=== PATIENT | female | born 1965 | race Caucasian/White ===

== ENCOUNTER 2017-10-31 10:40 | Outpatient (CLI) | payer OTHER ==
[~2017-10-31 10:40] MED LIST: ASPI-612 PO; COU3T PO; ENOX100S3 SQ
[2017-10-31 11:37] LABS: BASOPHILS % (AUTO) 0.5 % (0-1); EOSINOPHILS # (AUTO) 0.5 X10'3 (0-0.9); EOSINOPHILS % (AUTO) 6.4 % (0-6); HEMATOCRIT 39.3 % (35.0-45.0); HEMOGLOBIN 13.5 g/dl (12.0-16.0); LYMPHOCYTES # (AUTO) 1.6 X10'3 (1.1-4.8); LYMPHOCYTES % (AUTO) 22.6 % (21-51); MEAN CORPUSCULAR HGB CONC 34.4 % (33.0-36.5); MEAN CORPUSCULAR VOLUME 93.1 FL (78-98); MEAN PLATELET VOLUME 8.1 FL (7.4-10.4); MONOCYTES # (AUTO) 0.5 X10'3 (0-0.9); MONOCYTES % (AUTO) 6.3 % (2-12); NEUTROPHILS # (AUTO) 4.7 X10'3 (1.8-7.7); NEUTROPHILS % (AUTO) 64.2 % (42-75); PLATELET COUNT 214 X10'3 (140-440); RED BLOOD COUNT 4.22 X10'6 (4.20-5.60); RED CELL DISTRIBUTION WIDTH 11.7 % (11.5-14.5); WHITE BLOOD COUNT 7.3 X10'3 (4.5-11.0)
[2017-10-31 11:42] LABS: CLARITY,URINE SLIGHTLY CLOUDY (Clear); COLOR,URINE STRAW (Yellow); GLUCOSE, URINE NEGATIVE (Neg); KETONES,URINE NEGATIVE (Neg); LEUKOCYTE ESTERASE ,URINE TRACE (Neg); NITRITES, URINE NEGATIVE (Neg); OCCULT BLOOD,URINE NEGATIVE (Neg); PH,URINE 6.5 (4.8-8.0); PROTEIN,URINE NEGATIVE (Neg); UROBILINOGEN,URINE 0.2 E.U/dL (0.2-1.0)
[2017-10-31 11:44] LABS: UA COLLECTION TYPE CLN CATCH MIDSTREAM
[2017-10-31 11:52] LABS: SQUAMOUS EPITHELIAL CELL,UR MANY /LPF (FEW)
[2017-10-31 11:53] LABS: MUCUS STRANDS NONE SEEN /LPF (Neg)
[2017-10-31 11:54] LABS: AMORPHOUS PHOSPHATES 1+; BACTERIA,URINE 3+ /HPF (Neg); RBC,URINE NONE SEEN /HPF (0-2); WBC,URINE 0-4 /HPF (0-4)
[2017-10-31 12:06] LABS: ALBUMIN 3.9 G/DL (3.4-5.0); ANION GAP 8 (8-16); BILIRUBIN,TOTAL 0.5 MG/DL (0.1-1.0); BLOOD UREA NITROGEN 21 MG/DL (7-18); BUN/CREATININE RATIO 23.3 (6.6-38.0); CHLORIDE 106 MMOL/L (99-107); GLUCOSE 93 MG/DL (70-104); POTASSIUM 4.3 MMOL/L (3.5-5.1); SODIUM 142 MMOL/L (135-145); TOTAL CARBON DIOXIDE 27.7 MMOL/L (24-32); TOTAL PROTEIN 7.2 G/DL (6.4-8.2); eGFR 65 ML/MIN
[2017-10-31 12:07] LABS: ALANINE AMINOTRANSFERASE 32 U/L (12-78); ALBUMIN/GLOBULIN RATIO 1.2 (1.1-1.5); ALKALINE PHOSPHATASE 49 IU/L (46-116); ASPARTATE AMINO TRANSFERASE 28 U/L (10-37)
== END 2017-10-31 23:59 | disposition home or self-care (01) ==
LOC: LAB 10:40
PROVIDERS: ATTEND Nurse Practitioner Family
DX: I38 Endocarditis, valve unspecified (principal); Z86.79 Personal history of other diseases of the circulatory system
CPT/HCPCS: 36415; 80053; 81001; 85025

== ENCOUNTER 2017-12-24 11:44 | Outpatient (CLI) | payer OTHER | END 2017-12-24 23:59 | disposition home or self-care (01) | LOC: CARD DIAG 11:44 | PROVIDERS: ATTEND Internal Medicine Cardiovascular Disease | DX: I08.1 Rheumatic disorders of both mitral and tricuspid valves (principal); Z95.2 Presence of prosthetic heart valve | CPT/HCPCS: 93306 ==

== ENCOUNTER 2018-01-14 09:20 | Emergency (ER) | payer OTHER ==
[~2018-01-14] VITALS: Ht 175.3 cm; Wt 81.8 kg
[2018-01-14 09:30] VITALS: BP 110/77
== END 2018-01-14 11:45 | disposition home or self-care (01) ==
LOC: ER 09:20
DX: S93.401A Sprain of unspecified ligament of right ankle, initial encounter (principal); F12.90 Cannabis use, unspecified, uncomplicated; Z88.5 Allergy status to narcotic agent; Z79.82 Long term (current) use of aspirin; Z79.899 Other long term (current) drug therapy; Z79.01 Long term (current) use of anticoagulants; X50.1XXA Overexertion from prolonged static or awkward postures, initial encounter; Y93.89 Activity, other specified; Y92.814 Boat as the place of occurrence of the external cause; Y99.8 Other external cause status
CPT/HCPCS: 29515; 73610; 99284; A6449

== ENCOUNTER 2018-01-16 14:52 | Outpatient (CLI) | payer OTHER ==
[2018-01-16 14:51] VITALS: BP 136/88
== END 2018-01-16 15:35 | disposition home or self-care (01) ==
LOC: ORTHO 14:52
PROVIDERS: ATTEND Nurse Practitioner Family
DX: S93.491A Sprain of other ligament of right ankle, initial encounter (principal); I38 Endocarditis, valve unspecified; Z88.5 Allergy status to narcotic agent; X58.XXXA Exposure to other specified factors, initial encounter; Y93.89 Activity, other specified; Y92.89 Other specified places as the place of occurrence of the external cause; Y99.8 Other external cause status
CPT/HCPCS: 99213; L4360

== ENCOUNTER 2018-01-30 13:16 | Outpatient (CLI) | payer OTHER ==
[2018-01-30 13:11] VITALS: BP 123/86
== END 2018-01-30 14:05 | disposition home or self-care (01) ==
LOC: ORTHO 13:16
PROVIDERS: ATTEND Nurse Practitioner Family
DX: S93.491D Sprain of other ligament of right ankle, subsequent encounter (principal); Z88.8 Allergy status to other drugs, medicaments and biological substances; X58.XXXD Exposure to other specified factors, subsequent encounter
CPT/HCPCS: 73610; 99213

== ENCOUNTER 2018-02-26 10:55 | Outpatient (CLI) | payer OTHER ==
[2018-02-26] VITALS (8 sets, daily range): BP systolic 125–165; BP diastolic 75–93
== END 2018-02-26 23:59 | disposition home or self-care (01) ==
LOC: RAD 10:55
PROVIDERS: ATTEND Internal Medicine Cardiovascular Disease
DX: R07.9 Chest pain, unspecified (principal); R00.2 Palpitations; Z79.82 Long term (current) use of aspirin
CPT/HCPCS: 78452; 93017; A9500

== ENCOUNTER 2018-09-18 09:29 | Outpatient (CLI) | payer OTHER ==
[2018-09-18 10:11] LABS: CLARITY,URINE CLEAR (Clear); COLOR,URINE YELLOW (Yellow); GLUCOSE, URINE NEGATIVE (Neg); KETONES,URINE NEGATIVE (Neg); LEUKOCYTE ESTERASE ,URINE NEGATIVE (Neg); NITRITES, URINE NEGATIVE (Neg); OCCULT BLOOD,URINE NEGATIVE (Neg); PROTEIN,URINE NEGATIVE (Neg); UROBILINOGEN,URINE 0.2 E.U/dL (0.2-1.0)
[2018-09-18 10:18] LABS: UA COLLECTION TYPE CLN CATCH MIDSTREAM
[2018-09-18 10:18] LABS: BASOPHILS % (AUTO) 0.6 % (0-1); EOSINOPHILS # (AUTO) 0.2 X10'3 (0-0.9); EOSINOPHILS % (AUTO) 3.6 % (0-6); HEMATOCRIT 41.3 % (35.0-45.0); LYMPHOCYTES # (AUTO) 1.5 X10'3 (1.1-4.8); LYMPHOCYTES % (AUTO) 25.5 % (21-51); MEAN CORPUSCULAR HEMOGLOBIN 31.2 PG (27.0-31.0); MEAN CORPUSCULAR HGB CONC 33.9 g/dL (33.0-36.5); MEAN CORPUSCULAR VOLUME 91.9 FL (78-98); MEAN PLATELET VOLUME 7.9 FL (7.4-10.4); MONOCYTES # (AUTO) 0.4 X10'3 (0-0.9); MONOCYTES % (AUTO) 7.5 % (2-12); NEUTROPHILS # (AUTO) 3.6 X10'3 (1.8-7.7); NEUTROPHILS % (AUTO) 62.8 % (42-75); PLATELET COUNT 212 X10'3 (140-440); RED CELL DISTRIBUTION WIDTH 12.7 % (11.5-14.5); WHITE BLOOD COUNT 5.7 X10'3 (4.5-11.0)
[2018-09-18 10:31] LABS: ALANINE AMINOTRANSFERASE 20 U/L (12-78); ALBUMIN 3.6 G/DL (3.4-5.0); ALKALINE PHOSPHATASE 65 IU/L (46-116); ANION GAP 6 (8-16); ASPARTATE AMINO TRANSFERASE 17 U/L (10-37); BILIRUBIN,TOTAL 0.4 MG/DL (0.1-1.0); BLOOD UREA NITROGEN 18 MG/DL (7-18); BUN/CREATININE RATIO 22.2 (6.6-38.0); CALCIUM 9.3 MG/DL (8.5-10.1); CHLORIDE 105 MMOL/L (99-107); CHOLESTEROL 216 MG/DL (0-200); CREATININE 0.81 MG/DL (0.40-0.90); GLUCOSE 87 MG/DL (70-104); HDL CHOLESTEROL 73 MG/DL (35-60); LDL CHOLESTEROL 124 MG/DL (50-100); POTASSIUM 4.8 MMOL/L (3.5-5.1); SODIUM 138 MMOL/L (135-145); TOTAL CARBON DIOXIDE 27.5 MMOL/L (24-32); TOTAL PROTEIN 7.1 G/DL (6.4-8.2); TRIGLYCERIDES 91 MG/DL (20-135); eGFR 73 ML/MIN
== END 2018-09-18 23:59 | disposition home or self-care (01) ==
LOC: LAB 09:29
PROVIDERS: ATTEND Family Medicine
DX: Z12.31 Encounter for screening mammogram for malignant neoplasm of breast (principal); Z76.89 Persons encountering health services in other specified circumstances; Z79.82 Long term (current) use of aspirin
CPT/HCPCS: 36415; 80053; 80061; 81003; 84439; 84443; 85025

== ENCOUNTER 2018-10-07 08:43 | Outpatient (CLI) | payer OTHER ==
[2018-10-07] MEDS ORDERED: iohexol 300mg/ml 100ml inj. ONE (09:07)
== END 2018-10-07 23:59 | disposition home or self-care (01) ==
LOC: 64 CT 08:43
PROVIDERS: ATTEND Family Medicine
DX: N83.202 Unspecified ovarian cyst, left side (principal); Z98.890 Other specified postprocedural states; Z88.5 Allergy status to narcotic agent
CPT/HCPCS: 74177; Q9967

== ENCOUNTER 2018-11-19 12:36 | Outpatient (CLI) | payer OTHER | END 2018-11-19 23:59 | disposition home or self-care (01) | LOC: RAD 12:36 | PROVIDERS: ATTEND Orthopaedic Surgery | DX: M17.11 Unilateral primary osteoarthritis, right knee (principal); M22.41 Chondromalacia patellae, right knee; M25.461 Effusion, right knee | CPT/HCPCS: 73721 ==

== ENCOUNTER 2019-03-05 14:34 | Outpatient (CLI) | payer OTHER | END 2019-03-05 23:59 | disposition home or self-care (01) | LOC: CARD DIAG 14:34 | PROVIDERS: ATTEND Internal Medicine Cardiovascular Disease | DX: I08.2 Rheumatic disorders of both aortic and tricuspid valves (principal) | CPT/HCPCS: 93306 ==

== ENCOUNTER 2019-11-12 13:50 | Outpatient (CLI) | payer OTHER ==
[2019-11-12 14:20] LABS: CLARITY,URINE CLEAR (Clear); COLOR,URINE YELLOW (Yellow); GLUCOSE, URINE NEGATIVE (Neg); KETONES,URINE NEGATIVE (Neg); LEUKOCYTE ESTERASE ,URINE NEGATIVE (Neg); NITRITES, URINE NEGATIVE (Neg); OCCULT BLOOD,URINE TRACE-INTACT (Neg); PROTEIN,URINE NEGATIVE (Neg); UROBILINOGEN,URINE 0.2 E.U/dL (0.2-1.0)
[2019-11-12 14:22] LABS: BASOPHILS # (AUTO) 0.1 X10'3 (0-0.2); BASOPHILS % (AUTO) 0.9 % (0-1); EOSINOPHILS # (AUTO) 0.2 X10'3 (0-0.9); EOSINOPHILS % (AUTO) 2.7 % (0-6); HEMATOCRIT 40.7 % (35.0-45.0); HEMOGLOBIN 13.8 g/dl (12.0-16.0); LYMPHOCYTES # (AUTO) 1.7 X10'3 (1.1-4.8); LYMPHOCYTES % (AUTO) 27.7 % (21-51); MEAN CORPUSCULAR HEMOGLOBIN 32.3 PG (27.0-31.0); MEAN PLATELET VOLUME 8.1 FL (7.4-10.4); MONOCYTES # (AUTO) 0.5 X10'3 (0-0.9); NEUTROPHILS # (AUTO) 3.7 X10'3 (1.8-7.7); NEUTROPHILS % (AUTO) 60.7 % (42-75); PLATELET COUNT 215 X10'3 (140-440); RED BLOOD COUNT 4.29 X10'6 (4.20-5.60); RED CELL DISTRIBUTION WIDTH 12.4 % (11.5-14.5); WHITE BLOOD COUNT 6.1 X10'3 (4.5-11.0)
[2019-11-12 14:26] LABS: UA COLLECTION TYPE CLN CATCH MIDSTREAM
[2019-11-12 14:30] LABS: SQUAMOUS EPITHELIAL CELL,UR FEW /LPF (FEW)
[2019-11-12 14:31] LABS: BACTERIA,URINE FEW /HPF (Neg); RBC,URINE 0-2 /HPF (0-2); WBC,URINE 0-4 /HPF (0-4)
[2019-11-12 14:44] LABS: ALANINE AMINOTRANSFERASE 20 U/L (12-78); ALBUMIN 4.1 G/DL (3.4-5.0); ALBUMIN/GLOBULIN RATIO 1.2 (1.1-1.5); ALKALINE PHOSPHATASE 63 IU/L (46-116); ANION GAP 4 (8-16); ASPARTATE AMINO TRANSFERASE 23 U/L (10-37); BILIRUBIN,TOTAL 0.5 MG/DL (0.1-1.0); BLOOD UREA NITROGEN 20 MG/DL (7-18); BUN/CREATININE RATIO 21.7 (6.6-38.0); CALCIUM 9.3 MG/DL (8.5-10.1); CHLORIDE 106 MMOL/L (99-107); CHOL/HDL RATIO 2.6 (0.00-4.99); CHOLESTEROL 242 MG/DL (0-200); CREATININE 0.92 MG/DL (0.40-0.90); GLUCOSE 82 MG/DL (70-104); HDL CHOLESTEROL 92 MG/DL (35-60); LDL CHOLESTEROL 134 MG/DL (50-100); POTASSIUM 3.9 MMOL/L (3.5-5.1); SODIUM 140 MMOL/L (135-145); TOTAL CARBON DIOXIDE 29.8 MMOL/L (24-32); TOTAL PROTEIN 7.5 G/DL (6.4-8.2); TRIGLYCERIDES 55 MG/DL (20-135); eGFR 63 ML/MIN
== END 2019-11-12 23:59 | disposition home or self-care (01) ==
LOC: LAB 13:50
PROVIDERS: ATTEND Family Medicine
DX: Z00.00 Encounter for general adult medical examination without abnormal findings (principal)
CPT/HCPCS: 36415; 80053; 80061; 81001; 84439; 84443; 85025

== ENCOUNTER 2019-12-05 08:15 | Outpatient (CLI) | payer OTHER ==
[2019-12-05 08:54] LABS: HEMOGLOBIN A1C 5.3 % (4.5-6.2)
[2019-12-05 09:03] LABS: HDL CHOLESTEROL 77 MG/DL (35-60); LDL CHOLESTEROL 120 MG/DL (50-100); TRIGLYCERIDES 51 MG/DL (20-135)
[2019-12-05 09:18] LABS: CHOL/HDL RATIO 2.5 (0.00-4.99); CHOLESTEROL 191 MG/DL (0-200)
== END 2019-12-05 23:59 | disposition home or self-care (01) ==
LOC: LAB 08:15
PROVIDERS: ATTEND Family Medicine
DX: E78.00 Pure hypercholesterolemia, unspecified (principal); R73.03 Prediabetes; M10.9 Gout, unspecified
CPT/HCPCS: 36415; 80061; 83036; 84550

== ENCOUNTER 2020-07-01 04:22 | Emergency (ER) | payer BC, OTHER ==
[~2020-07-01] VITALS: Ht 175.3 cm; Wt 81.8 kg
[2020-07-01 04:27] VITALS: BP 142/78
== END 2020-07-01 05:08 | disposition home or self-care (01) ==
LOC: ER 04:22
DX: H11.31 Conjunctival hemorrhage, right eye (principal); R51.9 Headache, unspecified; Z98.890 Other specified postprocedural states; Z72.89 Other problems related to lifestyle; Z88.5 Allergy status to narcotic agent; Z79.82 Long term (current) use of aspirin; Z79.899 Other long term (current) drug therapy
CPT/HCPCS: 36415; 85610; 99283

== ENCOUNTER 2020-11-02 09:04 | Outpatient (CLI) | payer BC ==
[2020-11-02 09:41] LABS: BASOPHILS % (AUTO) 0.6 % (0-1); EOSINOPHILS # (AUTO) 0.3 X10'3 (0-0.9); EOSINOPHILS % (AUTO) 5.4 % (0-6); HEMATOCRIT 41.1 % (35.0-45.0); HEMOGLOBIN 13.9 g/dl (12.0-16.0); LYMPHOCYTES # (AUTO) 1.3 X10'3 (1.1-4.8); LYMPHOCYTES % (AUTO) 21.3 % (21-51); MEAN CORPUSCULAR HEMOGLOBIN 31.4 PG (27.0-31.0); MEAN CORPUSCULAR HGB CONC 33.9 g/dL (33.0-36.5); MEAN CORPUSCULAR VOLUME 92.7 FL (78-98); MONOCYTES # (AUTO) 0.4 X10'3 (0-0.9); MONOCYTES % (AUTO) 6.4 % (2-12); NEUTROPHILS % (AUTO) 66.3 % (42-75); PLATELET COUNT 223 X10'3 (140-440); RED BLOOD COUNT 4.43 X10'6 (4.20-5.60); RED CELL DISTRIBUTION WIDTH 12.1 % (11.5-14.5); WHITE BLOOD COUNT 6.1 X10'3 (4.5-11.0)
[2020-11-02 09:42] LABS: CLARITY,URINE CLEAR (Clear); COLOR,URINE STRAW (Yellow); GLUCOSE, URINE NEGATIVE (Neg); KETONES,URINE NEGATIVE (Neg); LEUKOCYTE ESTERASE ,URINE SMALL (Neg); NITRITES, URINE POSITIVE (Neg); OCCULT BLOOD,URINE NEGATIVE (Neg); PH,URINE 6.5 (4.8-8.0); PROTEIN,URINE NEGATIVE (Neg); UROBILINOGEN,URINE 0.2 E.U/dL (0.2-1.0)
[2020-11-02 09:44] LABS: UA COLLECTION TYPE CLN CATCH MIDSTREAM
[2020-11-02 09:49] LABS: SQUAMOUS EPITHELIAL CELL,UR MODERATE /LPF (FEW)
[2020-11-02 09:50] LABS: BACTERIA,URINE 1+ /HPF (Neg); MUCUS STRANDS FEW /LPF (Neg); RBC,URINE 0-2 /HPF (0-2); TRANSITIONAL EPI CELLS,URINE FEW /HPF; WBC,URINE 0-4 /HPF (0-4)
[2020-11-02 09:58] LABS: ALANINE AMINOTRANSFERASE 28 U/L (12-78); ALBUMIN 3.8 G/DL (3.4-5.0); ALBUMIN/GLOBULIN RATIO 1.1 (1.1-1.5); ALKALINE PHOSPHATASE 78 IU/L (46-116); ANION GAP 6 (8-16); BILIRUBIN,TOTAL 0.5 MG/DL (0.1-1.0); BLOOD UREA NITROGEN 16 MG/DL (7-18); BUN/CREATININE RATIO 17.6 (6.6-38.0); CALCIUM 9.5 MG/DL (8.5-10.1); CHLORIDE 107 MMOL/L (99-107); CREATININE 0.91 MG/DL (0.40-0.90); GLUCOSE 95 MG/DL (70-104); POTASSIUM 4.3 MMOL/L (3.5-5.1); SODIUM 142 MMOL/L (135-145); TOTAL CARBON DIOXIDE 29.4 MMOL/L (24-32); TOTAL PROTEIN 7.2 G/DL (6.4-8.2); eGFR 64 ML/MIN
[2020-11-02 09:59] LABS: ASPARTATE AMINO TRANSFERASE 23 U/L (10-37)
[2020-11-02 10:06] LABS: CHOL/HDL RATIO 2.9 (0.00-4.99); CHOLESTEROL 235 MG/DL (0-200); HDL CHOLESTEROL 81 MG/DL (35-60); LDL CHOLESTEROL 144 MG/DL (50-100); TRIGLYCERIDES 57 MG/DL (20-135)
== END 2020-11-02 23:59 | disposition home or self-care (01) ==
LOC: LAB 09:04
PROVIDERS: ATTEND Family Medicine
DX: R39.9 Unspecified symptoms and signs involving the genitourinary system (principal); R53.83 Other fatigue; E78.00 Pure hypercholesterolemia, unspecified; R73.03 Prediabetes; D64.9 Anemia, unspecified; E07.9 Disorder of thyroid, unspecified
CPT/HCPCS: 36415; 80053; 80061; 81001; 84436; 84443; 85025; 87088

== ENCOUNTER 2020-11-15 08:22 | Outpatient (CLI) | payer BC ==
[2020-11-15] VITALS (8 sets, daily range): BP systolic 122–131; BP diastolic 66–83
[~2020-11-15] VITALS: Ht 175.3 cm; Wt 82.6 kg
[2020-11-15] MEDS ORDERED: regadenoson 0.4mg/5ml syringe IV ONE (09:50)
[2020-11-15] MEDS ORDERED: aminophylline 250mg/10ml inj. IV ONE (09:50)
== END 2020-11-15 23:59 | disposition home or self-care (01) ==
LOC: CARD DIAG 08:22
PROVIDERS: ATTEND Internal Medicine Cardiovascular Disease
DX: I10 Essential (primary) hypertension (principal); Z95.2 Presence of prosthetic heart valve
CPT/HCPCS: 78452; 93017; 93306; A9500

== ENCOUNTER 2021-05-03 08:11 | Emergency (ER) | payer BC ==
[~2021-05-03] VITALS: Ht 175.3 cm; Wt 84.1 kg
[2021-05-03 08:29] VITALS: BP 142/77
[2021-05-03] MEDS ORDERED: HYDR-3965 PO (08:57)
== END 2021-05-03 09:13 | disposition home or self-care (01) ==
LOC: ER 08:12 → EEVIPCON 08:12 → ER 09:13
DX: S82.832A Other fracture of upper and lower end of left fibula, initial encounter for closed fracture (principal); S93.402A Sprain of unspecified ligament of left ankle, initial encounter; Z98.891 History of uterine scar from previous surgery; Z98.890 Other specified postprocedural states; Z72.89 Other problems related to lifestyle; Z88.5 Allergy status to narcotic agent; Z88.8 Allergy status to other drugs, medicaments and biological substances; Z79.82 Long term (current) use of aspirin; Z79.899 Other long term (current) drug therapy; Z95.2 Presence of prosthetic heart valve; Z79.01 Long term (current) use of anticoagulants; X50.1XXA Overexertion from prolonged static or awkward postures, initial encounter; Y93.01 Activity, walking, marching and hiking; Y92.89 Other specified places as the place of occurrence of the external cause; Y99.8 Other external cause status
CPT/HCPCS: 73610; 99283

== ENCOUNTER 2021-06-24 13:25 | Outpatient (CLI) | payer BC | END 2021-06-24 23:59 | disposition home or self-care (01) | LOC: RAD 13:25 | PROVIDERS: ATTEND Orthopaedic Surgery | DX: S82.892A Other fracture of left lower leg, initial encounter for closed fracture (principal); M77.52 Other enthesopathy of left foot and ankle; X58.XXXA Exposure to other specified factors, initial encounter; Y93.89 Activity, other specified; Y92.89 Other specified places as the place of occurrence of the external cause; Y99.8 Other external cause status | CPT/HCPCS: 73610 ==

== ENCOUNTER 2021-08-24 12:47 | Emergency (ER) | payer BC ==
[~2021-08-24] VITALS: Ht 175.3 cm; Wt 89.0 kg
[2021-08-24 13:18] VITALS: BP_SYST 85
[2021-08-24] MEDS ORDERED: cocaine 4% topical solution 4ml bottle MM ONE (13:35)
[2021-08-24] MEDS ORDERED: ondansetron/PF 4mg/2ml inj IV ONE (13:35)
[2021-08-24] MEDS ORDERED: AMOX-580 PO (13:36)
[2021-08-24] MEDS ORDERED: ONDA4TAB12 PO (13:52)
== END 2021-08-24 15:44 | disposition home or self-care (01) ==
LOC: EEVIPCON 12:47 → ER 12:47
DX: R04.0 Epistaxis (principal); Z98.890 Other specified postprocedural states; Z72.89 Other problems related to lifestyle; Z88.5 Allergy status to narcotic agent; Z79.2 Long term (current) use of antibiotics; Z79.82 Long term (current) use of aspirin; Z79.899 Other long term (current) drug therapy
CPT/HCPCS: 30901; 70160; 99284

== ENCOUNTER 2021-09-20 12:33 | Outpatient (CLI) | payer BC ==
[~2021-09-20 12:33] MED LIST changes: +AMOX-580 PO; +ONDA4TAB12 PO
== END 2021-09-20 23:59 | disposition home or self-care (01) ==
LOC: RAD 12:33
PROVIDERS: ATTEND Orthopaedic Surgery
DX: S86.312A Strain of muscle(s) and tendon(s) of peroneal muscle group at lower leg level, left leg, initial encounter (principal); M72.2 Plantar fascial fibromatosis; M65.872 Other synovitis and tenosynovitis, left ankle and foot; M62.562 Muscle wasting and atrophy, not elsewhere classified, left lower leg; M77.52 Other enthesopathy of left foot and ankle; M25.872 Other specified joint disorders, left ankle and foot; M77.32 Calcaneal spur, left foot; X58.XXXA Exposure to other specified factors, initial encounter; Y93.89 Activity, other specified; Y92.89 Other specified places as the place of occurrence of the external cause; Y99.8 Other external cause status
CPT/HCPCS: 73721

== ENCOUNTER 2021-12-12 10:53 | Outpatient (CLI) | payer BC ==
[~2021-12-12 10:53] MED LIST changes: -AMOX-580 PO
== END 2021-12-12 23:59 | disposition home or self-care (01) ==
LOC: RAD 10:53
PROVIDERS: ATTEND Orthopaedic Surgery
DX: S83.231A Complex tear of medial meniscus, current injury, right knee, initial encounter (principal); M17.11 Unilateral primary osteoarthritis, right knee; M25.461 Effusion, right knee; X58.XXXA Exposure to other specified factors, initial encounter; Y93.89 Activity, other specified; Y92.89 Other specified places as the place of occurrence of the external cause; Y99.8 Other external cause status
CPT/HCPCS: 73721

== ENCOUNTER 2021-12-12 11:01 | Outpatient (CLI) | payer BC ==
[2021-12-12 12:24] LABS: BASOPHILS % (AUTO) 0.4 % (0-1); EOSINOPHILS # (AUTO) 0.3 X10'3 (0-0.9); EOSINOPHILS % (AUTO) 5.1 % (0-6); HEMATOCRIT 39.8 % (35.0-45.0); HEMOGLOBIN 13.3 g/dl (12.0-16.0); LYMPHOCYTES # (AUTO) 1.2 X10'3 (1.1-4.8); LYMPHOCYTES % (AUTO) 21.6 % (21-51); MEAN CORPUSCULAR HEMOGLOBIN 30.1 PG (27.0-31.0); MEAN CORPUSCULAR HGB CONC 33.4 g/dL (33.0-36.5); MEAN CORPUSCULAR VOLUME 90.1 FL (78-98); MEAN PLATELET VOLUME 8.2 FL (7.4-10.4); MONOCYTES # (AUTO) 0.4 X10'3 (0-0.9); MONOCYTES % (AUTO) 7.6 % (2-12); NEUTROPHILS # (AUTO) 3.8 X10'3 (1.8-7.7); NEUTROPHILS % (AUTO) 65.3 % (42-75); PLATELET COUNT 216 X10'3 (140-440); RED BLOOD COUNT 4.41 X10'6 (4.20-5.60); RED CELL DISTRIBUTION WIDTH 12.6 % (11.5-14.5); WHITE BLOOD COUNT 5.8 X10'3 (4.5-11.0)
[2021-12-12 12:56] LABS: ALANINE AMINOTRANSFERASE 21 U/L (12-78); ALBUMIN 3.6 G/DL (3.4-5.0); ALBUMIN/GLOBULIN RATIO 1.1 (1.1-1.5); ALKALINE PHOSPHATASE 72 IU/L (46-116); ANION GAP 6 (8-16); ASPARTATE AMINO TRANSFERASE 18 U/L (10-37); BILIRUBIN,TOTAL 0.4 MG/DL (0.1-1.0); BLOOD UREA NITROGEN 20 MG/DL (7-18); BUN/CREATININE RATIO 22.5 (6.6-38.0); C-REACTIVE PROTEIN 0.07 MG/DL (0.0-0.5); CALCIUM 9.1 MG/DL (8.5-10.1); CHLORIDE 108 MMOL/L (99-107); CHOL/HDL RATIO 2.9 (0.00-4.99); CHOLESTEROL 256 MG/DL (0-200); CREATININE 0.89 MG/DL (0.40-0.90); GLUCOSE 79 MG/DL (70-104); HDL CHOLESTEROL 88 MG/DL (35-60); LDL CHOLESTEROL 130 MG/DL (50-100); PHOSPHORUS 3.9 MG/DL (2.3-4.5); POTASSIUM 4.4 MMOL/L (3.5-5.1); SODIUM 142 MMOL/L (135-145); TOTAL CARBON DIOXIDE 27.6 MMOL/L (24-32); TOTAL PROTEIN 6.9 G/DL (6.4-8.2); TRIGLYCERIDES 91 MG/DL (20-135); eGFR 65 ML/MIN
[2021-12-13 12:12] LABS: FSH, SERUM 51.6 mIU/mL (.)
[2021-12-13 18:39] LABS: MICROALB/CRT, RATIO <10 mg/g creat (0-29)
== END 2021-12-12 23:59 | disposition home or self-care (01) ==
LOC: LAB 11:01
PROVIDERS: ATTEND Family Medicine
DX: Z13.21 Encounter for screening for nutritional disorder (principal); Z12.11 Encounter for screening for malignant neoplasm of colon; R07.89 Other chest pain; R53.82 Chronic fatigue, unspecified; E78.2 Mixed hyperlipidemia; G47.30 Sleep apnea, unspecified; Z78.0 Asymptomatic menopausal state; Z95.4 Presence of other heart-valve replacement
CPT/HCPCS: 36415; 80053; 80061; 82043; 82306; 82570; 82607; 82746; 83001; 83735; 84100; 84439; 84443; 85025; 85651; 86140

== ENCOUNTER 2022-08-28 08:45 | Outpatient (CLI) | payer BC ==
[2022-08-28 09:31] LABS: ALANINE AMINOTRANSFERASE 26 U/L (12-78); ALBUMIN 3.8 G/DL (3.4-5.0); ALBUMIN/GLOBULIN RATIO 1.2 (1.1-1.5); ALKALINE PHOSPHATASE 82 IU/L (46-116); ANION GAP 6 (8-16); ASPARTATE AMINO TRANSFERASE 26 U/L (10-37); BILIRUBIN,TOTAL 0.4 MG/DL (0.1-1.0); BLOOD UREA NITROGEN 20 MG/DL (7-18); BUN/CREATININE RATIO 21.7 (6.6-38.0); CALCIUM 9.6 MG/DL (8.5-10.1); CHLORIDE 104 MMOL/L (99-107); CHOL/HDL RATIO 2.4 (0.00-4.99); CHOLESTEROL 243 MG/DL (0-200); CREATININE 0.92 MG/DL (0.40-0.90); GLUCOSE 96 MG/DL (70-104); HDL CHOLESTEROL 101 MG/DL (35-60); LDL CHOLESTEROL 131 MG/DL (50-100); POTASSIUM 4.1 MMOL/L (3.5-5.1); SODIUM 137 MMOL/L (135-145); TOTAL CARBON DIOXIDE 27.4 MMOL/L (24-32); TOTAL PROTEIN 7.1 G/DL (6.4-8.2); TRIGLYCERIDES 43 MG/DL (20-135); eGFR 62 ML/MIN
== END 2022-08-28 23:59 | disposition home or self-care (01) ==
LOC: RAD 08:45
PROVIDERS: ATTEND Internal Medicine Cardiovascular Disease
DX: I08.8 Other rheumatic multiple valve diseases (principal); R06.02 Shortness of breath
CPT/HCPCS: 36415; 80053; 80061; 93306

== ENCOUNTER 2022-11-11 07:31 | Emergency (ER) | payer BC ==
[~2022-11-11] VITALS: Ht 175.3 cm; Wt 85.0 kg
[2022-11-11 07:34] VITALS: BP 127/79
[2022-11-11] MEDS ORDERED: dexamethasone sod phosphate 10mg/ml inj IM STA (07:45)
[2022-11-11] MEDS ORDERED: PRED20TA PO (07:53)
== END 2022-11-11 08:02 | disposition home or self-care (01) ==
LOC: ER 07:32
DX: L23.7 Allergic contact dermatitis due to plants, except food (principal); Z98.890 Other specified postprocedural states; Z72.89 Other problems related to lifestyle; Z79.82 Long term (current) use of aspirin; Z79.899 Other long term (current) drug therapy; Z88.5 Allergy status to narcotic agent
CPT/HCPCS: 96372; 99283; J1100

== ENCOUNTER 2023-02-06 14:47 | Outpatient (CLI) | payer BC | END 2023-02-06 23:59 | disposition home or self-care (01) | LOC: RAD 14:47 | PROVIDERS: ATTEND Nurse Practitioner Family | DX: S83.242A Other tear of medial meniscus, current injury, left knee, initial encounter (principal); M17.12 Unilateral primary osteoarthritis, left knee; M25.562 Pain in left knee; M25.462 Effusion, left knee; M94.8X8 Other specified disorders of cartilage, other site; M25.862 Other specified joint disorders, left knee; X58.XXXA Exposure to other specified factors, initial encounter; Y93.89 Activity, other specified; Y92.89 Other specified places as the place of occurrence of the external cause; Y99.8 Other external cause status | CPT/HCPCS: 73721 ==

== ENCOUNTER → 2023-07-12 | Outpatient (CLI) | payer BC ==
[2023-07-12 15:34] LABS: BILIRUBIN,URINE NEGATIVE (Neg); CLARITY,URINE CLEAR (Clear); COLOR,URINE YELLOW (Yellow); GLUCOSE, URINE NEGATIVE (Neg); KETONES,URINE NEGATIVE (Neg); LEUKOCYTE ESTERASE ,URINE NEGATIVE (Neg); NITRITES, URINE NEGATIVE (Neg); OCCULT BLOOD,URINE NEGATIVE (Neg); PROTEIN,URINE NEGATIVE (Neg); UROBILINOGEN,URINE 0.2 E.U/dL (0.2-1.0)
[2023-07-12 16:00] LABS: UA COLLECTION TYPE NON-SPECIFIED
== END | disposition home or self-care (01) ==
LOC: RAD 14:19
PROVIDERS: ATTEND Family Medicine
DX: R10.9 Unspecified abdominal pain (principal)
CPT/HCPCS: 81003

== ENCOUNTER 2024-01-31 16:11 | Outpatient (CLI) | payer BC ==
[~2024-01-31 16:11] MED LIST changes: +ONDA-243 PO; -ONDA4TAB12 PO
== END 2024-01-31 23:59 | disposition home or self-care (01) ==
LOC: MRI 16:11
PROVIDERS: ATTEND Orthopaedic Surgery
DX: S83.232A Complex tear of medial meniscus, current injury, left knee, initial encounter (principal); S83.241A Other tear of medial meniscus, current injury, right knee, initial encounter; S83.272A Complex tear of lateral meniscus, current injury, left knee, initial encounter; M25.462 Effusion, left knee; M71.22 Synovial cyst of popliteal space [Baker], left knee; M25.562 Pain in left knee; M26.56 Non-working side interference; X58.XXXA Exposure to other specified factors, initial encounter; Y93.89 Activity, other specified; Y92.89 Other specified places as the place of occurrence of the external cause; Y99.8 Other external cause status; M25.461 Effusion, right knee
CPT/HCPCS: 73721

== ENCOUNTER 2024-02-21 13:05 | Emergency (ER) | payer BC ==
[~2024-02-21] VITALS: Ht 175.3 cm; Wt 84.1 kg
[2024-02-21] MEDS: HYDROcodone/acetaminophen 10/325mg tab PO ONE (14:27)
[2024-02-21] MEDS ORDERED: NAPR-56 PO (14:35)
[2024-02-21] MEDS ORDERED: ONDA-245 PO (14:35)
[2024-02-21] MEDS: ibuprofen tablet 400 MG TABLET PO ONE (14:35)
[2024-02-21] MEDS ORDERED: HYDR-3972 PO (14:35)
[2024-02-21 15:37] VITALS: BP 132/77; PULSE 66; RESP 16; TEMP 98.4; O2SAT 97
== END 2024-02-21 15:50 | disposition home or self-care (01) ==
LOC: ER 13:06
DX: S82.392A Other fracture of lower end of left tibia, initial encounter for closed fracture (principal); Z88.8 Allergy status to other drugs, medicaments and biological substances; Z79.82 Long term (current) use of aspirin; Z79.899 Other long term (current) drug therapy; Z79.1 Long term (current) use of non-steroidal anti-inflammatories (NSAID); Z79.01 Long term (current) use of anticoagulants; Z98.890 Other specified postprocedural states; X50.1XXA Overexertion from prolonged static or awkward postures, initial encounter; Y93.89 Activity, other specified; Y92.89 Other specified places as the place of occurrence of the external cause; Y99.8 Other external cause status
CPT/HCPCS: 29515; 73610; 99283; A6449

== ENCOUNTER 2024-04-01 08:00 | Outpatient (CLI) | payer BC ==
[~2024-04-01 08:00] MED LIST changes: +ONDA-245 PO
== END 2024-04-01 23:00 | disposition home or self-care (01) ==
LOC: CARD DIAG 08:00
PROVIDERS: ATTEND Internal Medicine Cardiovascular Disease
DX: Z01.810 Encounter for preprocedural cardiovascular examination (principal); I08.8 Other rheumatic multiple valve diseases; I25.119 Atherosclerotic heart disease of native coronary artery with unspecified angina pectoris
CPT/HCPCS: 93306

== ENCOUNTER 2024-04-01 08:39 | Outpatient (CLI) | payer BC ==
[~2024-04-01] VITALS: Ht 175.3 cm; Wt 195.0 kg
[2024-04-01] VITALS (8 sets, daily range): BP systolic 111–137; BP diastolic 61–75; PULSE 67–84; RESP 14–16; O2SAT 97
[2024-04-01] MEDS ORDERED: metoprolol tartrate 1mg/ml inj IV PRN (10:30)
[2024-04-01] MEDS ORDERED: aminophylline 250mg/10ml inj. IV PRN (10:30)
[2024-04-01] MEDS: regadenoson 0.4mg/5ml syringe IV ONE (11:47)
== END 2024-04-01 23:59 | disposition home or self-care (01) ==
LOC: NM 08:39
PROVIDERS: ATTEND Internal Medicine Cardiovascular Disease
DX: Z01.810 Encounter for preprocedural cardiovascular examination (principal); I08.3 Combined rheumatic disorders of mitral, aortic and tricuspid valves; I25.119 Atherosclerotic heart disease of native coronary artery with unspecified angina pectoris
CPT/HCPCS: 78452; 93017; 93306; A9500; J2785

== ENCOUNTER 2024-05-02 05:47 | Day surgery (SDC) | payer BC ==
[2024-04-24 15:13] LABS: BASOPHILS # (AUTO) 0.1 X10'3 (0-0.2); BASOPHILS % (AUTO) 0.8 % (0-1); EOSINOPHILS # (AUTO) 0.1 X10'3 (0-0.9); EOSINOPHILS % (AUTO) 1.7 % (0-6); LYMPHOCYTES # (AUTO) 1.9 X10'3 (1.1-4.8); MEAN CORPUSCULAR HEMOGLOBIN 31.3 PG (27.0-31.0); MEAN CORPUSCULAR HGB CONC 33.9 g/dL (33.0-36.5); MEAN CORPUSCULAR VOLUME 92.3 FL (78-98); MEAN PLATELET VOLUME 7.7 FL (7.4-10.4); MONOCYTES # (AUTO) 0.4 X10'3 (0-0.9); MONOCYTES % (AUTO) 5.6 % (2-12); NEUTROPHILS # (AUTO) 4.4 X10'3 (1.8-7.7); NEUTROPHILS % (AUTO) 63.9 % (42-75); PRE OP HEMOGLOBIN 14.2 g/dL (12.0-16.0); PRE OP PLATELET COUNT 233 X10'3 (140-440); PRE OP WHITE BLOOD COUNT 6.8 10'3 (4.8-10.8); RED BLOOD COUNT 4.55 X10'6 (4.20-5.60); RED CELL DISTRIBUTION WIDTH 13.1 % (11.5-14.5)
[2024-04-24 15:23] LABS: ALBUMIN/GLOBULIN RATIO 1.1 (1.1-1.5); ALKALINE PHOSPHATASE 79 IU/L (46-116); BLOOD UREA NITROGEN 16 MG/DL (7-18); CALCIUM 9.7 MG/DL (8.5-10.1); CHLORIDE 106 MMOL/L (99-107); PRE OP ALT 23 U/L (30-65); PRE OP ANION GAP 8 (8-16); PRE OP AST 20 U/L (10-37); PRE OP BILIRUB, TOTAL 0.5 MG/DL (0.0-1.0); PRE OP GLUCOSE 95 MG/DL (70-104); PRE OP POTASSIUM 4.9 MMOL/L (3.4-5.1); PRE OP SODIUM 141 MMOL/L (135-145); TOTAL PROTEIN 7.5 G/DL (6.4-8.2); eGFR 73 ML/MIN
[2024-05-02] VITALS (12 sets, daily range): BP systolic 114–133; BP diastolic 66–82; PULSE 63–99; RESP 10–23; TEMP 97.7; O2SAT 92–98
[~2024-05-02] VITALS: Ht 175.3 cm; Wt 90.3 kg
[2024-05-02] MEDS: cefazolin 2gm/D5W 100mL 100 ML IV ONE (05:30)
[~2024-05-02 05:47] MED LIST changes: -ENOX100S3 SQ; -ONDA-243 PO; -ONDA-245 PO
[2024-05-02] MEDS: famotidine 20mg tablet PO ONE (06:28)
[2024-05-02] MEDS: ringers solution, lacted 1,000 ML IV SCH (06:29)
[2024-05-02] MEDS ORDERED: BUPIVAcaine 2.5mg/ml inj 50ml vial (contains preservative) ONE (06:59)
[2024-05-02] MEDS ORDERED: ringers solution, lacted 1,000 ML IV SCH (07:10)
[2024-05-02] MEDS ORDERED: labetalol 20mg/4ml (5mg/ml) syringe IV PRN (07:10)
[2024-05-02] MEDS ORDERED: acetaminophen 1,000mg/100ml IV 100 ML IV ONE ×2 (07:10→08:16)
[2024-05-02] MEDS ORDERED: ondansetron/PF 4mg/2ml inj IV PRN (07:10)
[2024-05-02] MEDS ORDERED: proCHLORperazine 10 MG/2 ml inj IV PRN (07:10)
[2024-05-02] MEDS ORDERED: hydrALAZINE 20mg/ml inj. IV PRN (07:10)
[2024-05-02] MEDS ORDERED: HYDROmorphone/PF 0.2 MG/ML SYRINGE IV PRN ×2 (07:10)
[2024-05-02] MEDS ORDERED: meperidine/PF 25mg/ml syringe IV PRN ×3 (07:10)
[2024-05-02] MEDS ORDERED: BUPIVAcaine 0.5% inj/PF 60 ML ONE (07:16)
[2024-05-02] MEDS ORDERED: sevoflurane 250ml liquid IH ONE (07:22)
[2024-05-02] MEDS ORDERED: midazolam 1 mg/ML 2ml injection ONE (07:33)
[2024-05-02] MEDS ORDERED: fentaNYL /PF 50mcg/ml 5ml ampule ONE (07:40)
[2024-05-02] MEDS ORDERED: LIDOcaine 2% (20mg/ml) 5ml vial ONE (07:53)
[2024-05-02] MEDS ORDERED: propofol inj 20 ML IV ONE (07:53)
[2024-05-02] MEDS ORDERED: dexamethasone sod phosphate 4mg/ml inj. ONE (07:53)
[2024-05-02] MEDS ORDERED: 0.9 % SODIUM CHLORIDE 10 ML VIAL ONE (07:53)
[2024-05-02] MEDS ORDERED: ondansetron/PF 4mg/2ml inj ONE (07:54)
[2024-05-02] MEDS ORDERED: ePHEDrine 50MG/ML INJ. ONE (07:54)
[2024-05-02] MEDS: LIDOcaine 1% 30ml preserv. free vial ONE (08:05)
[2024-05-02] MEDS: LIDOcaine 1% w/EPI 1:100,000 inj. MDV 50 ML VIAL ONE (08:05)
== END 2024-05-02 09:57 | disposition home or self-care (01) ==
LOC: PAS 05:47
PROVIDERS: ATTEND Orthopaedic Surgery
DX: S83.242A Other tear of medial meniscus, current injury, left knee, initial encounter (principal); S83.282A Other tear of lateral meniscus, current injury, left knee, initial encounter; M94.262 Chondromalacia, left knee; E78.5 Hyperlipidemia, unspecified; G47.33 Obstructive sleep apnea (adult) (pediatric); Z79.01 Long term (current) use of anticoagulants; Z79.82 Long term (current) use of aspirin; Z79.899 Other long term (current) drug therapy; Z98.891 History of uterine scar from previous surgery; Z98.890 Other specified postprocedural states; Z88.5 Allergy status to narcotic agent; X58.XXXA Exposure to other specified factors, initial encounter; Y93.89 Activity, other specified; Y92.89 Other specified places as the place of occurrence of the external cause; Y99.8 Other external cause status
CPT/HCPCS: 29880; 36415; 80053; 82948; 85025; J0131; J0690; J1100; J2250; J2405; J2704; J3010; J3490; J7120; Z7506; Z7508; Z7512; A4215; A4618; A6253; A6449; A7000

== ENCOUNTER 2025-03-24 07:42 | Outpatient (CLI) | payer BC ==
[2025-03-24] VITALS (8 sets, daily range): BP systolic 107–140; BP diastolic 66–77; PULSE 57–84; RESP 14–16; O2SAT 98–100
[2025-03-24] MEDS: regadenoson 0.4mg/5ml syringe IV ONE (10:20)
--- NOTE | 2025-03-24 13:12 | RADIOLOGY REPORT ---
Reason for study/Clinical History: PRESENCE OF PROSTHETIC HEART VALVE Comparison Study: NM NM JUAN J SCAN on DOS: 04/01/24, DI ANKLE, COMPLETE(3VW MIN) on DOS: 02/21/24, MR MRI LOWER EXTREMITY LEFT on DOS: 01/31/24, MR MRI LOWER EXTREMITY RIGHT on DOS: 01/31/24, MRI LOWER EXTREM ITY LEFT on DOS: 02/06/23 Myocardial Perfusion Study with SPECT Technique: The patient received an intravenous injection of 8 mCi of technetium-99m Sestamibi while at rest. After a short delay, SPECT tomographic images of the heart were obtained. The patient the n went to the stress lab where they received an intravenous Lexiscan utilizing standard protocol. 35 .1 mCi of technetium-99m Sestamibi was injected intravenously immediately after the start of the in fusion. Gated SPECT tomographic images of the heart were acquired and processed. Findings: Rotating planar images show no significant attenuation artifact. The left ventricular size is within normal limits. Stress tomographic images demonstrate normal perfusion. Resting tomographic images demonstrate a similar pattern. Gated portion of the study shows normal wall motion and myocardial thickening. The left ventricular ejection fraction is 61%. (normal greater than 50%) Impression: Normal left ventricular size, wall motion, and function, without evidence of infarction or of myocard ium at ischemic risk. The left ventricular ejection fraction is 61%.
--- NOTE | 2025-03-24 13:43 | CARDIOLOGY REPORT ---
APPROVED REPORT EXAM: Comprehensive 2D, Doppler, and color-flow Echocardiogram. Patient Location: OUT-PATIENT Blood Pressure: 137/77 mmHg Heart Rate: 60 bpm Rhythm: SINUS w/OCCASIONAL PVCs Indications [employer] AVR 2007 [employer] And Planning: Shruthi Lemons MD Previous echo: 04/01/24 [facility] (EF 50-55%, mild central AVR insufficiency, pk / mn grad 38 / 22 mmHg, pk V 3.09 m/s, trace MR, mild TR) 2D Dimensions RVDd 3.9 cm IVSd 1.2 (0.7-1.1cm) LVDd 5.2 cm PWd 1.0 (0.7-1.1cm) IVSs 1.4 (0.8-1.2cm) LVDs 3.5 (2.5-4.0cm) PWs 1.1 (0.8-1.2cm) LVEF(%) 60.5 (>50%) Ao Asc Diam.4.30 cmLA Volume 61 (18-58mL) FS (%) 32.6 % SV 78.5 ml Biplane 2D LA Volumes LA ESV A2C 49.33 mL/m2 LA ESV A4C 66.63 mL/m2 LA ESV Index 32.62 mL/m2 Aortic Valve AoV Peak Benedict. 288.7 cm/s AoV VTI 68.3 cm AO Peak GR. 33.3 mmHg AO Mean GR. 18 mmHg LVOT VTI 27.17 cm LVOT Peak Benedict. 114.6 cm/s Mitral Valve MV E Velocity 88.3 cm/s MV DECEL TIME 257 ms MV A Velocity 79.5 cm/s MV PHT 73 ms E/A Ratio 1.1 MVA (PHT) 3.02 cm2 TDI E/Medial E' 21.1 Tricuspid Valve TR P. Velocity 260 cm/s RAP ESTIMATE 10 mmHg TR Peak Gr. 27 mmHg RVSP 37 mmHg Pulmonary Vein S2 Velocity 51.83 cm/s PVa [id number] msec LEFT VENTRICLE Normal LV size and low normal function. Mild concentric hypertrophy. Overall LVEF is 55%. RIGHT VENTRICLE RV is mildly dilated with normal systolic function. RVSP is estimated at 37 mmHg. ATRIA Left atrium is mildly dilated. Mobile interatrial septum - no flow detected. AORTIC VALVE [employer] Mechanical AVR of unknown size appears well seated with mild central jet, unchanged from ex am on 04/01/24. Peak / mean gradients of 33 / 18 mmHG. Peak velocity is measured at 2.89 m/sec. MITRAL VALVE Mild MV annular calcification without stenosis. Trace regurgitation. TRICUSPID VALVE TV appears structurally normal with trace regurgitation. PULMONIC VALVE Normal PV without stenosis, physiologic insufficiency. GREAT VESSELS Aortic root is normal in size. Ascending aorta is normal in size. PERICARDIUM Normal pericardium. No effusion. Conclusion Overall LVEF is 55%. Normal LV size and low normal function. Mild concentric hypertrophy. RV is mildly dilated with normal systolic function. RVSP is estimated at 37 mmHg. Left atrium is mildly dilated. Mobile interatrial septum - no flow detected. [employer] Mechanical AVR of unknown size appears well seated with mild central jet, unchanged from ex am on 04/01/24. Peak / mean gradients of 33 / 18 mmHG. Peak velocity is measured at 2.89 m/sec. Mild MV annular calcification without stenosis. Trace regurgitation. TV appears structurally normal with trace regurgitation. Normal pericardium. No effusion.
== END 2025-03-24 23:59 | disposition home or self-care (01) ==
LOC: RAD 07:42
PROVIDERS: ATTEND Internal Medicine Cardiovascular Disease
DX: R94.31 Abnormal electrocardiogram [ECG] [EKG] (principal); I25.119 Atherosclerotic heart disease of native coronary artery with unspecified angina pectoris; Z95.2 Presence of prosthetic heart valve; R07.89 Other chest pain; R00.2 Palpitations
CPT/HCPCS: 78452; 93017; 93306; A9500; J2785

== ENCOUNTER 2025-03-24 07:47 | Outpatient (CLI) | payer BC ==
[2025-03-24 08:27] LABS: MEAN PLATELET VOLUME 7.6 FL (7.4-10.4); RED CELL DISTRIBUTION WIDTH 12.7 % (11.5-14.5)
[2025-03-24 08:57] LABS: CHOL/HDL RATIO 3.0 (0.00-4.99); CREATININE 0.92 MG/DL (0.40-0.90); LDL CHOLESTEROL 158 MG/DL (50-100); PRO BRAIN NATRIURETIC PEPTIDE 118 PG/ML (0-125); TOTAL CARBON DIOXIDE 27.7 MMOL/L (24-32); eGFR 62 ML/MIN
[2025-03-25 11:12] LABS: ESTRADIOL 11.0 pg/mL (0.0-54.7); PROGESTERONE <0.1 ng/mL (.); TESTOSTERONE, SERUM 11 ng/dL (3-67)
== END 2025-03-24 23:59 | disposition home or self-care (01) ==
LOC: LAB 07:47
PROVIDERS: ATTEND Nurse Practitioner
DX: R79.89 Other specified abnormal findings of blood chemistry (principal); E34.9 Endocrine disorder, unspecified; I35.9 Nonrheumatic aortic valve disorder, unspecified
CPT/HCPCS: 36415; 80053; 80061; 82670; 82679; 83036; 83880; 84144; 84402; 84403; 84439; 84443; 85025